=== PATIENT | male | born 1955 | race Caucasian/White ===

== ENCOUNTER 2023-03-06 18:35 | Emergency (ER) | payer MEDICARE, BC, SELFPAY ==
[2023-03-06 18:46] VITALS: BP 179/78; PULSE 58; RESP 18; TEMP 36.6; O2SAT 96; BMI 28.1
--- NOTE | 2023-03-06 19:13 | ED.ABDPAIN ---
HPI - Abdominal Pain General Chief Complaint: Abdominal Pain Stated Complaint: Abdominal pain Time Seen by Provider: 03/06/23 18:45 History of Present Illness HPI narrative: This 67-year-old male comes in reporting abdominal pain that began this afternoon about for 5 hours ago. He states that it is constant and rather severe at 8/10 in severity. He did have a couple dry heaves. He does not report any fever or vomiting. Prior to this he has been feeling normal. He does have a history of prostate cancer that spread to the bones about 3 years ago. Since then he has been on medication that has brought resolution of these symptoms at least for the time being. Related Data Home Medications Medication Instructions Recorded Confirmed acetaminophen 325 mg tablet (Pain 325 mg PO Q6H PRN 03/06/23 03/06/23 Relief (acetaminophen)) eltrombopag 25 mg tablet (Promacta) 25 mg PO DAILY 03/06/23 03/06/23 enzalutamide 40 mg capsule (Xtandi) 160 mg PO DAILY 03/06/23 03/06/23 lisinopril 20 mg tablet 20 mg PO DAILY 03/06/23 03/06/23 metoprolol tartrate 100 mg tablet 100 mg PO BID 03/06/23 03/06/23 Allergies Allergy/AdvReac Type Severity Reaction Status Date / Time Sulfa (Sulfonamide Allergy Intermediate Unknown Verified 03/06/23 18:45 Antibiotics) bees Allergy Severe Anaphylaxis Uncoded 03/06/23 18:45 Review of Systems Status of ROS Reports: 10 or more systems reviewed and unremarkable except as noted in History and below Narrative Constitutional: No fevers, no weight gain or loss. Eyes: No discharge. No vision changes. HENT: No congestion, no sore throat, no ear pain. Cardiovascular: No chest pain, no palpitations. Respiratory: No shortness of breath, no wheezes, no cough. Gastrointestinal: Diffuse abdominal pain with some nausea and vomiting. No diarrhea. Genitourinary: No dysuria, no hematuria. Musculoskeletal: Normal range of motion. Skin: No rashes, no pruritis. Neurological: No dizziness, weakness, sensory change, speech change. Endo/Heme/Allergies: No bruising or bleeding. No polydipsia. Pysch: no suicidality, no anxiety, no insomnia. All other systems reviewed and are negative. PFSH PFSH Social History Smoking Status: Former smoker What tobacco products do you use: cigarettes Smoking quit date/years: >15 years ago How often do you have a drink containing alcohol: 2-3 times a week How many standard drinks containing alcohol do you have on a typical day: 1 or 2 AUDIT-C Alcohol total score: 3 Non-prescribed substance use: denies use service: No Exam Narrative: Exam Narrative: Constitutional: Well-developed, well-nourished, no acute distress. HEENT: Normocephalic, atraumatic. Neck: Normal range of motion. Nontender. Supple. Heart: Regular. No murmurs. Normal rate. Intact distal pulses. Lungs: Clear to auscultation. No chest discomfort. No wheezes, rhonchi, or rales. Abdomen: Normal bowel sounds. Diffuse tenderness throughout the abdomen. No rebound tenderness. Genitalia: Deferred. Back: No midline tenderness. Normal range of motion. Extremities: Normal range of motion. No injury. Skin: Intact. No rash. Warm. No erythema or pallor. Neurologic: No altered sensation. No weakness. Alert and oriented. Psychiatric: No suicidality. No anxiety or depression. No insomnia. Nursing notes and vitals signs are reviewed. Const: Vital Signs, click to edit/add: Vital Signs - 24 hr 03/06/23 18:46 Temperature 97.9 F Pulse Rate [Right Pulse Oximeter] 58 L Respiratory Rate 18 Blood Pressure [Ri ght Upper Arm] 179/78 H Pulse Oximetry 96 Oxygen Delivery Me thod Room Air Course Vital Signs Vital signs: Initial Vital Signs Temperature 97.9 F 03/06/23 18:46 Temperature Source Temporal Artery Scan 03/06/23 18:46 Pulse Rate 58 L 03/06/23 18:46 Pulse Rhythm Regular 03/06/23 18:46 Respiratory Rate 18 03/06/23 18:46 Blood Pressure 179/78 H 03/06/23 18:46 Blood Pressure Mean 111 H 03/06/23 18:46 Blood Pressure Position Sitting 03/06/23 18:46 Pulse Oximetry 96 03/06/23 18:46 Oxygen Delivery Method Room Air 03/06/23 18:46 Vital Signs Temperature 97.9 F 03/06/23 18:46 Pulse Rate 58 L 03/06/23 18:46 Respiratory Rate 18 03/06/23 18:46 Blood Pressure 179/78 H 10/01/23 18:46 Pulse Oximetry 96 03/06/23 18:46 Oxygen Delivery Method Room Air 03/06/23 18:46 Temperature 97.9 F 03/06/23 18:46 Pulse Rate 58 L 03/06/23 18:46 Respiratory Rate 18 03/06/23 18:46 Blood Pressure 179/78 H 03/06/23 18:46 Pulse Oximetry 96 03/06/23 18:46 Oxygen Delivery Method Room Air 03/06/23 18:46 MDM - Abdominal Pain MDM Narrative Medical decision making narrative: This patient comes in with abdominal pain as described above. An IV was established and labs are acquired. He did receive IV doses of Toradol 30 mg and Zofran 4 mg. He also received a GI cocktail of Maalox and lidocaine. He states that he is feeling better with these treatments. I did discuss the role of CT imaging but seeing that he does not have rebound tenderness and has normal bowel sounds and vital signs we elected to look at his labs and proceed with scanning if suspicion grows for something that may require imaging. Lab results do returned with reassuring findings. His platelets are a bit low which is not atypical for him. I revisited the role of CT imaging in the patient declined that study for now. He is okay to be discharged home. Most likely this is a gastritis or gastroenteritis. He did receive an IV dose of Protonix before discharge. Prescriptions for Toradol and Zofran or also provided from the [employer] machine. Lab Data Labs: Lab Results 03/06/23 Range/Units 19:25 WBC 10.14 (4.50-11.00) K/uL RBC 4.96 (4.30-5.90) m/uL Hgb 15.4 (13.5-17.5) gm/dL Hct 46.5 (37.0-53.0) % MCV 94 (80-100) fL MCH 31 (26-34) pg MCHC 33 (32-36) gm/dL RDW Coeff of Codie 13.3 (11.5-15.5) % Plt Count 125 L (140-440) K/uL Neut % (Auto) 80.1 H (42.0-72.0) % Lymph % (Auto) 10.9 L (20-44) % [place] % (Auto) 7.0 (0.0-11.0) % Eos % (Auto) 0.6 (0.0-7.0) % Baso % (Auto) 0.1 (0.0-3.0) % Neut # (Auto) 8.10 H (1.7-7.0) K/uL Lymph # (Auto) 1.10 (0.90-2.90) K/uL [place] # (Auto) 0.70 (0.00-0.90) K/UL Eos # (Auto) 0.06 (0.00-0.50) K/uL Baso # (Auto) 0.01 (0.00-0.30) K/uL Abs Immat Gran (auto) 0.13 (0.00-0.30) K/uL Imm/Tot Granulo (auto) 1.3 % Sodium 139 (135-149) mmol/L Potassium 4.9 (3.6-5.1) mmol/L Chloride 105 (96-114) mmol/L Carbon Dioxide 21 (20-32) mmol/L Anion Gap 13 (7-15) mEq/L BUN 19 (7-30) mg/dL Creatinine 0.5 (0.5-1.5) mg/dL Estimated Creat Clear 69.72 Estimated GFR 110 ml/min Glucose 159 H (60-115) mg/dL Calcium 9.9 (8.4-10.6) mg/dL Total Bilirubin 0.9 (0.1-1.5) mg/dL Direct Bilirubin 0.3 (0.0-0.5) mg/dL AST 41 H (12-35) U/L ALT 20 (4-50) U/L Alkaline Phosphatase 81 (40-150) U/L C-Reactive Protein 1.0 (0.5-1.0) mg/dL Total Protein 8.0 (6.0-8.3) g/dL Albumin 4.3 (3.3-5.0) g/dL Lipase 61 (23-300) U/L Discharge Plan Discharge Clinical Impression: Gastritis, Abdominal pain Patient Disposition: Home, Self-Care Condition: Improved Additional Instructions: Take medication as needed and indicated. Follow up with MD return if symptoms are persistent or worsening. Prescriptions: No Action metoprolol tartrate 100 mg tablet 100 mg PO BID lisinopril 20 mg tablet 20 mg PO DAILY Promacta 25 mg tablet 25 mg PO DAILY Xtandi 40 mg capsule 160 mg PO DAILY acetaminophen [Pain Relief (acetaminophen)] 325 mg tablet 325 mg PO Q6H PRN Follow Up/Referrals: Provider,Not a Local [Primary Care Provider] - Stand Alone Forms: [employer] Info Instructions
[2023-03-06] MEDS: ONDANSETRON 2 MG/ML inj 4 MG IVP (19:30)
[2023-03-06] MEDS: KETOROLAC 30 MG/ML inj IVP (19:30)
[2023-03-06] MEDS: MAG HYDROX/ALUMINUM HYD/SIMETH 30 ML ORAL.SUSP 15 ML PO (19:31)
[2023-03-06 19:38] LABS: Basophils Absolute Auto 0.01 K/uL (0.00-0.30); Basophils Percent Auto 0.1 % (0.0-3.0); Eosinophils Absolute Auto 0.06 K/uL (0.00-0.50); Eosinophils Percent Auto 0.6 % (0.0-7.0); Hematocrit 46.5 % (37.0-53.0); Hemoglobin* 15.4 gm/dL (13.5-17.5); Immature Granulocytes Abs Auto 0.13 K/uL (0.00-0.30); Immature Granulocytes Pct Auto 1.3 %; Lymphocytes Percent Auto 10.9 % (20-44); Mean Corpuscular HGB Conc 33 gm/dL (32-36); Mean Corpuscular Hemoglobin 31 pg (26-34); Mean Corpuscular Volume 94 fL (80-100); Neutrophils Percent Auto 80.1 % (42.0-72.0); Platelet Count* 125 K/uL (140-440); RDW Coefficient of Variation % 13.3 % (11.5-15.5); Red Blood Count 4.96 m/uL (4.30-5.90); White Blood Count* 10.14 K/uL (4.50-11.00)
[2023-03-06 19:40] LABS: Slide Review Reflex No
[2023-03-06] MEDS: lidocaine HCL 4 % TOP SOLN 50 ML BOTTLE 7.5 ML PO (19:41)
[2023-03-06 19:51] LABS: Albumin* 4.3 g/dL (3.3-5.0); Chloride* 105 mmol/L (96-114)
[2023-03-06 19:52] LABS: Potassium* 4.9 mmol/L (3.6-5.1); Sodium* 139 mmol/L (135-149)
[2023-03-06 19:54] LABS: Creatinine* 0.5 mg/dL (0.5-1.5); Est. Creatinine Clearance* 69.72; Estimated Glomerular Filt Rate 110 ml/min
[2023-03-06 19:55] LABS: Alanine Aminotransferase* 20 U/L (4-50); Alkaline Phosphatase* 81 U/L (40-150); Anion Gap 13 mEq/L (7-15); Aspartate Amino Transferase* 41 U/L (12-35); Bilirubin Direct* 0.3 mg/dL (0.0-0.5); Bilirubin Total* 0.9 mg/dL (0.1-1.5); Blood Urea Nitrogen* 19 mg/dL (7-30); Calcium* 9.9 mg/dL (8.4-10.6); Carbon Dioxide* 21 mmol/L (20-32); Glucose* 159 mg/dL (60-115); Lipase* 61 U/L (23-300)
[2023-03-06] MEDS: PANTOPRAZOLE SODIUM 40 MG INJ IVP (20:34)
[2023-03-06 20:36] VITALS: BP 166/82; PULSE 63; RESP 14; O2SAT 96
== END 2023-03-06 20:54 | disposition home or self-care (01) ==
PROVIDERS: Emergency Provider Emergency Medicine Emergency Medical Services
DX: K29.70 Gastritis, unspecified, without bleeding (principal)
CPT/HCPCS: 36415; 80048; 80076; 83690; 85025; 86140; 96374; 96375; 99283; 99284; A9270; C9113; J1885; J2405